=== PATIENT | female | born 1985 | race American Indian/Alaskan Native ===

== ENCOUNTER 2020-12-25 05:31 | Inpatient (IN) | payer MEDICAID, OTHER ==
[2020-12-25] MEDS ORDERED: diphenhydrAMINE 25 MG CAP PO PRN (06:11)
[2020-12-25] MEDS ORDERED: MAGNESIUM HYDROXIDE (MOM) ORAL LIQD UDC PO PRN (06:11)
[2020-12-25] MEDS ORDERED: WITCH HAZEL/ GLYCERIN PAD TP PRN (06:11)
[2020-12-25] MEDS ORDERED: ONDANSETRON 4 MG/2 ML INJ IV PRN (06:11)
[2020-12-25] MEDS ORDERED: HYDROcodone/ACETAMINOPHEN 5-325 MG TAB PO PRN (06:11)
[2020-12-25] MEDS ORDERED: PROMETHAZINE 25 MG RECT SUPP PR PRN (06:11)
[2020-12-25] MEDS ORDERED: KETOROLAC 30 MG/1 ML INJ IV PRN (06:11)
[2020-12-25] MEDS ORDERED: ACETAMINOPHEN 325 MG TAB PO PRN (06:11)
[2020-12-25] MEDS ORDERED: LANOLIN/ZINC/DIMETHICONE (LANSINOH) 7 GM TP PRN (06:11)
--- NOTE | 2020-12-25 06:23 | History and Physical Report ---
History of Present Illness Date of examination: 12/25/20 Date of admission: 12/25/20 05:31 Chief complaint: brought in by ambulance in active and delivered within moments of arrival. History of present illness: brought in by ambulance in active and delivered within moments of arrival. JUJU 12/25/20. Multipara. Minimal care. Past History - Obstetrical History Expected Date of Delivery: 12/25/20 Actual Gestation: 40 Week(s) 0 Day(s) Medications and Allergies Active Meds: Active Medications Acetaminophen (Acetaminophen 325 Mg Tab) 650 mg PO Q4H PRN PRN Reason: Pain MILD(1-3)/Fever >100.5/HANKINS Hydrocodone Bitart/Acetaminophen (Hydrocodone/Acetaminophen 5-325 Mg Tab) 2 each PO Q6H PRN PRN Reason: Pain, Moderate (4-6) Bisacodyl (Bisacodyl 10 Mg Rect Supp) 10 mg WA BID PRN PRN Reason: Constipation Diphenhydramine HCl (Diphenhydramine 25 Mg Cap) 25 mg PO Q6H PRN PRN Reason: Itching Ibuprofen (Ibuprofen 600 Mg Tab) 600 mg PO Q6H HOMERO Ketorolac Tromethamine (Ketorolac 30 Mg/1 Ml Inj) 30 mg IV Q6H PRN PRN Reason: Pain, Moderate (4-6) Stop: 12/30/20 06:10 Magnesium Hydroxide (Magnesium Hydroxide (Mom) Oral Liqd Udc) 30 ml PO HS PRN PRN Reason: Constipation Multi-Ingredient Ointment (Lanolin/Zinc/Dimethicone (Lansinoh) 7 Gm) 1 applic TP PRN PRN PRN Reason: Sore Nipples Ondansetron HCl (Ondansetron 4 Mg/2 Ml Inj) 4 mg IV Q8H PRN PRN Reason: Nausea And Vomiting Promethazine HCl (Promethazine 25 Mg Rect Supp) 25 mg WA Q6H PRN PRN Reason: Nausea And Vomiting Sodium Chloride (Sodium Chloride 0.9% 10 Ml Flush Syringe) 10 ml IV PRN NR Witch Silvia/Glycerin (Witch Silvia/ Glycerin Pad) 1 each TP PRN PRN PRN Reason: Hemorrhoid/cleansing/soothing Review of Systems All systems: negative - Physical Exam Lungs: Positive: Normal air movement Abdomen: Positive: distention Genitourinary (Female): Positive: normal external genitalia Vulva: both: normal Vagina: Positive: normal moisture. Negative: discharge Uterus: Positive: enlarged Extremities: Positive: normal Deep Tendon Reflex Grade: Normal +2 - Obstetrical FHR: auscultation normal Uterine Contraction Monitor Mode: External Cervical Dilatation: 10 station: 0+3 Results All other labs normal. Assessment and Plan - Patient Problems (1) Term Current Visit: Yes Status: Acute (2) Active labor at term Current Visit: Yes Status: Acute Plan to address problem: Patient delivered before completionof admission process.
--- NOTE | 2020-12-25 06:31 | Procedure Note ---
OB Delivery Note - Delivery Date of Delivery: 12/25/20 Surgeon: SARAI RODRIGUEZ Estimated blood loss: 100cc - Vaginal Delivery presentation: vertex Delivery position: OA Intrapartum events: none Delivery induction: none Route of delivery: Delivery placenta: spontaneous Delivery cord: 3 umbilical vessels Episiotomy: none Delivery laceration: none Anesthesia: none - Infant A at 1 minute: 8 at 5 minutes: 9 Infant Gender: Female
[2020-12-25 07:51] LABS: Hematocrit 33.4 % (30.3-42.9); Hemoglobin 10.8 gm/dl (10.1-14.3); Mean Corpuscular HGB Conc 32 % (30-34); Mean Corpuscular Volume 94 fl (79-97); Platelet Count 222 K/mm3 (140-440); Red Blood Count 3.56 M/mm3 (3.65-5.03); Red Cell Distribution Width 16.8 % (13.2-15.2)
[2020-12-25 08:20] LABS: Hepatitis C Virus Antibody Non-Reactive (NonReactive)
[2020-12-25] MEDS ORDERED: OXYTOCIN DRIP 30 UNITS/500 ML BAG IV SCH (09:00)
[2020-12-25 16:56] LABS: Amphetamine Screen,Urine PRESUMPTIVE NEGATIVE; Benzodiazepines Screen,Urine PRESUMPTIVE NEGATIVE; Cannabinoid Screen,Urine PRESUMPTIVE NEGATIVE; Cocaine Screen,Urine PRESUMPTIVE POSITIVE; Methadone Screen,Urine PRESUMPTIVE NEGATIVE; Opiate Screen,Urine PRESUMPTIVE NEGATIVE
[2020-12-25 18:32] LABS: Hematocrit 32.7 % (30.3-42.9); Hemoglobin 10.9 gm/dl (10.1-14.3)
[2020-12-26] MEDS: IBUPROFEN 600 MG TAB PO SCH ×4 (10:24→23:44)
--- NOTE | 2020-12-26 10:55 | Progress Note ---
Assessment and Plan - Patient Problems (1) Term Current Visit: Yes Status: Resolved (2) Active labor at term Current Visit: Yes Status: Resolved (3) Status post normal vaginal delivery Current Visit: Yes Status: Acute Plan to address problem: Stable and may go home this evening. Subjective - Subjective Date of service: 12/26/20 Principal diagnosis: Status post day 1. Interval history: brought in by ambulance in active and delivered within moments of arrival. JUJU 12/25/20. Multipara. Minimal care. Patient reports: appetite normal, voiding normally, pain well controlled, ambulating normally : doing well Objective - Vital Signs Latest vital signs: Vital Signs Temp Pulse Resp BP BP Pulse Ox Pulse Ox 12/26/20 10:23 65 143/84 12/26/20 07:54 98.6 F 67 20 126/86 98 12/26/20 00:40 97.9 F 74 20 136/75 136/75 98 12/25/20 23:11 72 124/77 12/25/20 21:38 74 124/77 99 12/25/20 20:00 98 12/25/20 17:52 70 146/94 12/25/20 17:08 98.2 F 70 18 146/94 98 Intake and Output 12/25/20 12/26/20 12/26/20 23:59 07:59 15:59 Intake Total 240 240 240 Output Total 200 Balance 40 240 240 Intake: Oral 240 240 240 Output: Urine 200 Void 200 Other: Total, Intake Amount 240 240 240 Total, Output Amount 200 # Voids Void 1 1 - Exam Lungs: Present: Normal air movement Abdomen: Present: normal appearance Uterus: Present: normal, firm Extremities: Present: normal Deep Tendon Reflex Grade: Normal +2
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
[2020-12-27] MEDS: IBUPROFEN 600 MG TAB PO SCH (05:57)
[2020-12-27 17:01] VITALS: BP 148/85
== END 2020-12-27 16:59 | disposition home or self-care (01) | DRG 775 ==
LOC: LD 05:31 → OB 10:16
PROVIDERS: ADMIT Obstetrics & Gynecology; ATTEND Obstetrics & Gynecology
PROC: 10E0XZZ Delivery of Products of Conception, External Approach (ICD-10-PCS; principal; 2020-12-25)
DX: O80 Encounter for full-term uncomplicated delivery (principal); Z3A.40 40 weeks gestation of pregnancy; Z37.0 Single live birth; Z20.822 Contact with and (suspected) exposure to COVID-19
CPT/HCPCS: 36415; 80307; 85014; 85018; 85027; 86592; 86706; 86762; 86803; 86850; 86900; 86901; 87806; G0378; U0003

== ENCOUNTER 2021-12-09 17:34 | Emergency (ER) | payer MEDICAID ==
[2021-12-09 22:27] VITALS: BP 176/110
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
[2021-12-10] MEDS ORDERED: IBUPROFEN 800 MG TAB PO ONE (02:44)
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
== END 2021-12-10 06:30 | disposition home or self-care (01) ==
LOC: ED 17:34
DX: S00.83XA Contusion of other part of head, initial encounter (principal); Y08.89XA Assault by other specified means, initial encounter; Y93.9 Activity, unspecified; Y92.89 Other specified places as the place of occurrence of the external cause; Y99.8 Other external cause status
CPT/HCPCS: 70150; 99283